=== PATIENT | male | born 1960 | race African-American/Black ===

== ENCOUNTER → 2019-02-12 | Outpatient (CLI) | payer OTHER ==
--- NOTE | 2019-02-12 14:10 | EKG ---
[address] [place] [address] ELECTROCARDIOGRAM REPORT Name: OSMAR COLINDRES Room #: REG MACK Chavez#: [id number] ������������������ Admission: 02/12/19 ������������������ Attend Phys: Moira Armendariz MD Discharge: ������������������ Date of : 64 Report #: [id number] ����������������������������������������������������������������� [id number] THIS REPORT FOR: //name// [facility] Test Date: 2019-02-12 Test Time: 12:39:49 Pat Name: OSMAR COLINDRES Department: Room: Gender: Retort Loader: Walter MACK : 1960 Requested By: Moira Armendariz Order Number: [id number] MD: Jadon Ross Measurements Intervals [place] Rate: 81 P: 31 MS: 134 QRS: -25 QRSD: 101 T: 12 QT: 370 QTc: 430 Interpretive Statements Sinus rhythm Borderline left axis deviation Abnormal R-wave progression, early transition No previous ECG available for comparison Electronically Signed On 02-12-2019 14:10:35 CDT by Jadon Ross [email or web address] ��������������������������������������������� <ELECTRONICALLY SIGNED> ���������������������������������������� By: Jadon Ross MD ��������������������������������������������� 02/12/19 1410 1239 1239 Jadon Ross MD /ANNEL
== END ==
LOC: CV 12:10
DX: Z01.810 Encounter for preprocedural cardiovascular examination (principal); I10 Essential (primary) hypertension; E11.9 Type 2 diabetes mellitus without complications